=== PATIENT | male | born 1970 | race Two or more races ===

== ENCOUNTER → 2020-07-01 | Outpatient (CLI) | payer SELFPAY | LOC: M LABSMTC 14:17 | PROVIDERS: ATTEND Pediatrics | DX: Z11.52 Encounter for screening for COVID-19 (principal) ==

== ENCOUNTER 2021-11-05 21:28 | Emergency (ER) | payer SELFPAY ==
[~2021-11-05] VITALS: Ht 177.8 cm; Wt 86.4 kg
[2021-11-06] MEDS ORDERED: BACITRACIN OINTMENT 30GM TUBE TOP ONE (00:15)
[2021-11-06] MEDS ORDERED: BOOSTRIX/ADACEL VACCINE (DIPHTH/PERTUSS/ACELL/TETANUS) 0.5ML SYR IM ONE (00:20)
[2021-11-06 00:24] VITALS: BP 141/96
== END 2021-11-06 00:45 | disposition home or self-care (01) ==
LOC: M ED 21:28
DX: M25.532 Pain in left wrist (principal); S91.012A Laceration without foreign body, left ankle, initial encounter; W19.XXXA Unspecified fall, initial encounter; Y92.512 Supermarket, store or market as the place of occurrence of the external cause; Y93.9 Activity, unspecified; Y99.9 Unspecified external cause status

== ENCOUNTER → 2021-11-24 | Outpatient (CLI) | payer SELFPAY | LOC: M RAD 10:53 | PROVIDERS: ATTEND Orthopaedic Surgery | DX: M51.26 Other intervertebral disc displacement, lumbar region (principal) ==

== ENCOUNTER → 2021-11-24 | Outpatient (CLI) | payer SELFPAY | LOC: M SOG 15:58 | PROVIDERS: ATTEND Orthopaedic Surgery Hand Surgery | DX: S60.222A Contusion of left hand, initial encounter (principal); X58.XXXA Exposure to other specified factors, initial encounter; Y92.9 Unspecified place or not applicable ==